=== PATIENT | female | born 1995 | race Caucasian/White ===

== ENCOUNTER 2019-11-13 12:40 | Emergency (ER) | payer MEDICAID ==
[~2019-11-13] VITALS: Ht 157.5 cm; Wt 64.0 kg
[2019-11-13] MEDS ORDERED: DIPHENHYDRAMINE 25MG CAPSULE PO ONE (13:15)
[2019-11-13] MEDS ORDERED: FAMOTIDINE 20MG TABLET PO ONE (13:15)
[2019-11-13] MEDS ORDERED: PREDNISONE 20MG TABLET PO ONE (13:15)
[2019-11-13 13:55] VITALS: BP 115/58
== END 2019-11-13 14:00 | disposition home or self-care (01) ==
LOC: ER 12:40
DX: T78.40XA Allergy, unspecified, initial encounter (principal); Z88.6 Allergy status to analgesic agent; X58.XXXA Exposure to other specified factors, initial encounter
CPT/HCPCS: 81025; 99284; J7512; Q0163

== ENCOUNTER 2020-04-29 13:27 | Emergency (ER) | payer MEDICAID, OTHER ==
[~2020-04-29] VITALS: Ht 157.5 cm; Wt 71.0 kg
[2020-04-29 13:39] VITALS: BP 103/76
[2020-04-29] MEDS ORDERED: DOXY100C2 MT (14:39)
[2020-04-29] MEDS ORDERED: DOXYCYCLINE HYCLATE 100MG CAPSULE PO ONE (15:00)
== END 2020-04-29 15:13 | disposition home or self-care (01) ==
LOC: ER 13:27
DX: L02.412 Cutaneous abscess of left axilla (principal); Z88.6 Allergy status to analgesic agent
CPT/HCPCS: 81025; 99283

== ENCOUNTER 2020-05-02 10:09 | Emergency (ER) | payer OTHER ==
[~2020-05-02] VITALS: Ht 157.5 cm; Wt 70.0 kg
[~2020-05-02 10:09] MED LIST: DOXY100C2 MT
[2020-05-02 10:48] VITALS: BP 100/70
== END 2020-05-02 10:48 | disposition home or self-care (01) ==
LOC: ER 10:15
DX: Z48.00 Encounter for change or removal of nonsurgical wound dressing (principal); R22.9 Localized swelling, mass and lump, unspecified; Z88.6 Allergy status to analgesic agent
CPT/HCPCS: 99281